=== PATIENT | male | born 1965 | race Caucasian/White ===

== ENCOUNTER 2018-06-23 21:31 | Outpatient (REF) | payer BC, SELFPAY ==
[2018-06-23 22:14] LABS: Anion Gap 6.6 mmol/L (3-11); BUN 21 mg/dL (7-18); CO2 29.4 mmol/L (21.0-32.0); CREATININE 1.24 mg/dL (0.70-1.30); Calcium 9.3 mg/dL (8.5-10.1); Chloride 103 mmol/L (98-107); Cholesterol 180 mg/dL (50-200); Glucose 112 mg/dL (70-100); HDL Cholesterol 40 mg/dL (40-60); LDL CHOLESTEROL 132 mg/dL (<100); Potassium 4.5 mmol/L (3.5-5.1); Sodium 139 mmol/L (136-145); Triglyceride 69 mg/dL (30-150)
== END 2018-06-23 21:51 ==
LOC: NCHCN 21:31
PROVIDERS: PCP Internal Medicine; Visit Provider Internal Medicine
DX: I10 Essential (primary) hypertension (principal); Z13.220 Encounter for screening for lipoid disorders
CPT/HCPCS: 80048; 80061; 83721

== ENCOUNTER 2019-12-09 08:20 | Outpatient (REF) | payer BC, SELFPAY ==
[2019-12-09 21:00] LABS: HCT 41.8 % (40.0-50.0); HGB 13.9 g/dL (13.5-17.5); Mean Corp. HGB Concentration 33.3 g/dL (32.0-36.0); Mean Corpuscular Hemoglobin 30.3 pg (27.0-33.0); Mean Corpuscular Volume 91.1 fL (80-95); Mean Platelet Volume 9.8 fL (8.0-11.0); Platelet Count 325 x1000/uL (130-400); RBC 4.59 m/cumm (4.50-6.00); RBC Distribution Width 12.6 % (11.8-14.1); White Blood Cell Count 5.46 k/cumm (4.4-10.8)
[2019-12-09 21:47] LABS: ALT 33 U/L (16-63); AST 25 U/L (15-37); Alkaline Phosphatase 55 U/L (46-116); Anion Gap 4.6 mmol/L (3-11); BUN 24 mg/dL (7-18); CO2 30.4 mmol/L (21.0-32.0); Calcium 9.4 mg/dL (8.5-10.1); Calculated LDL 124 mg/dL (<100); Chloride 105 mmol/L (98-107); Cholesterol 177 mg/dL (<200); Glucose 103 mg/dL (74-106); HDL Cholesterol 36 mg/dL (40-60); Potassium 4.3 mmol/L (3.5-5.1); Sodium 140 mmol/L (136-145); TSH 1.44 uIU/mL (0.36-3.74); Total Protein 6.9 g/dL (6.4-8.2); Triglyceride 87 mg/dL (<150)
== END 2019-12-09 08:40 ==
LOC: NCHCN 08:20
PROVIDERS: PCP Internal Medicine; Visit Provider Internal Medicine
DX: I10 Essential (primary) hypertension (principal); E66.9 Obesity, unspecified
CPT/HCPCS: 80053; 80061; 85027; 84443

== ENCOUNTER 2020-12-31 16:50 | Outpatient (REF) | payer BC, SELFPAY ==
[2020-12-31 21:40] LABS: Anion Gap 8.3 mmol/L (3-11); BUN 23 mg/dL (7-18); CO2 30.7 mmol/L (21.0-32.0); CREATININE 1.3 mg/dL (0.70-1.30); Calcium 9.4 mg/dL (8.5-10.1); Calculated LDL 102 mg/dL (<100); Chloride 103 mmol/L (98-107); Cholesterol 186 mg/dL (<200); Glucose 104 mg/dL (74-106); HDL Cholesterol 36 mg/dL (40-60); Potassium 3.9 mmol/L (3.5-5.1); Sodium 142 mmol/L (136-145); Triglyceride 242 mg/dL (<150)
[2021-01-02 09:23] LABS: PSA, Screening 1.7 ng/mL (0.0-3.5)
== END 2020-12-31 16:51 | disposition home or self-care (01) ==
LOC: NCHCN 16:50
PROVIDERS: PCP Internal Medicine; Visit Provider Internal Medicine
DX: E78.5 Hyperlipidemia, unspecified (principal); I10 Essential (primary) hypertension; Z12.5 Encounter for screening for malignant neoplasm of prostate
CPT/HCPCS: 80048; 80061; 84153

== ENCOUNTER 2021-06-07 19:45 | Outpatient (CLI) | payer OTHER, SELFPAY ==
--- NOTE | 2021-06-07 13:30 | DI.RAD_ITS ---
Exam(s) XR SHOULDER LT COMPLETE 2+V EXAM: XR SHOULDER LT COMPLETE 2+V CLINICAL HISTORY: S/P FOOSH with locked elbow - shoulder pain x 4 wk, M25.512. TECHNIQUE: 2D digital imaging was performed of the left shoulder. Six images were obtained. AP, Gr ashey, Y-view and axillary views were obtained. COMPARISON: No exams were available for comparison FINDINGS: BONES: No acute fracture is present. No bony destructive lesion is seen. JOINTS: No dislocation present. SOFT TISSUE: Normal. IMPRESSION: Unremarkable radiographs of the left shoulder. DATA REPOSITORY: RADIATION DOSE DELIVERED:
== END 2021-06-07 20:05 ==
PROVIDERS: PCP Internal Medicine; Visit Provider Nurse Practitioner Family
DX: M25.512 Pain in left shoulder (principal)
CPT/HCPCS: 73030

== ENCOUNTER 2021-07-15 00:35 | Outpatient (CLI) | payer OTHER, SELFPAY ==
--- NOTE | 2021-07-15 07:00 | DI.MRI_ITS ---
Exam(s) MR UPPER JOINT LT WO EXAM: MR UPPER JOINT LT WO CLINICAL HISTORY: L SHOULDER PAIN,prox biceps rupture,injury,s46.212a,strain,s49.90xa,m25.512 TECHNIQUE: Multiplanar multisequence MRI of the shoulder was performed. COMPARISON: CR XR SHOULDER LT COMPLETE 2+V from 06/07/2021 FINDINGS: MARROW:There is no evidence of fracture, Hill-Sachs deformity, nor ominous osseous lesions. ROTATOR CUFF MECHANISM: AC JOINT/ACROMIUM: There are moderate degenerative changes in the AC joint. Some impingement noted. Acromion appears downsloping. There is no impingement hook on the undersurface of the acromion.. There is no evidence of os acromiale. Supraspinatus: There is a full-thickness tear of the supraspinatus with retraction musculotendinous j unction to the mid humeral head level. Fluid is seen in the sub acromial bursa region and there is s uperior subluxation of the humeral head within the glenoid fossa. Infraspinatus: There is also full-thickness tear of the infraspinatus with retraction of the musculot endinous junction. Teres Minor: Intact. No evidence of tear nor muscle atrophy. Subscapularis/anterior cuff: Some tendinitis signal is noted. No high-grade tear. No atrophy. BICEPS TENDON: Normally position in the intertubercular groove. No evidence of tear. LABRUM: No significant signal abnormality in the superior labrum posterior to the biceps tendon to stern ggest presence of a SLAP tear. Posterior labrum appears intact. Anterior labrum appears intact. No evidence of paralabral cyst. LABROLIGAMENTOUS/CAPSULAR COMPLEX: There is no evidence of avulsion of the anterior-inferior labrum, capsule, inferior glenohumeral liga ment complex nor disruption of the scapular periosteum to suggest the presence of a Bankart lesion. GLENOHUMERAL JOINT: There is a joint effusion which extends into the medial compartment. Also contin uity of flow through the large rotator cuff tear into the subacromial space. Also some fluid down th e biceps tendon sheath evident. No degenerative subarticular cysts. No evidence of capsular tear. T he inferior glenohumeral ligament is thin but otherwise intact. QUADRILATERAL SPACE: No evidence of mass in the region of the axillary nerve and dorsal circumflex hu meral vessels. Visualized triceps muscle at this level appears unremarkable. IMPRESSION: 1. There are large full-thickness tears of both the supra and infraspinatus with retraction of the mu sculotendinous junctions, this leaving a large bare area. No prominent muscle atrophy. Teres minor is intact. Some tendinitis signal is evident in the anterior cuff-subscapularis 2. No obvious biceps tendon nor labral tears and no evidence of paralabral cyst 3. Glenohumeral joint effusion evident. No loose intra-articular bodies.. DATA REPOSITORY:
== END 2021-07-15 00:55 ==
LOC: DI 00:36
PROVIDERS: PCP Internal Medicine; Visit Provider Student in an Organized Health Care Education/Training Program
DX: M25.412 Effusion, left shoulder; M25.512 Pain in left shoulder; S46.012A Strain of muscle(s) and tendon(s) of the rotator cuff of left shoulder, initial encounter; S49.82XA Other specified injuries of left shoulder and upper arm, initial encounter; X58.XXXA Exposure to other specified factors, initial encounter
CPT/HCPCS: 73221

== ENCOUNTER 2021-08-06 03:53 | Outpatient (CLI) | payer BC, SELFPAY ==
[2021-08-06 12:01] LABS: Source Nasal/Nares
[2021-08-06 16:21] LABS: COVID-19 PCR Negative (Negative)
== END 2021-08-06 03:54 | disposition home or self-care (01) ==
PROVIDERS: PCP Internal Medicine; Visit Provider Student in an Organized Health Care Education/Training Program
DX: Z20.822 Contact with and (suspected) exposure to COVID-19 (principal); Z01.818 Encounter for other preprocedural examination
CPT/HCPCS: 87635

== ENCOUNTER 2021-08-08 10:56 | Day surgery (SDC) | payer OTHER, SELFPAY ==
[2021-08-08] VITALS (8 sets, daily range): BP systolic 120–166; BP diastolic 77–108; PULSE 75–90; RESP 16–24; TEMP 36.2–36.7; O2SAT 94–98; BMI 32.8
--- NOTE | 2021-08-08 10:25 | ANES.PREOP_ITS ---
General Info Date of Service Date Performed: 08/08/21 Height: 5 ft 10 in Weight: 103.873 kg Body Mass Index (BMI): 32.8 Surgical Procedure: Operation Date: 08/08/21 13:10 Proposed Procedure Side Surgeon p Shoulder Rotator Cuff Arthroscopic W/ Extensive Debridement, Biceps Tenodesis, Subacromial Decompression, possible Allograft Superior Capsular Reconstruction Left Osmar Kendrick MD Meds Allergies and Home Medications Allergies Allergy/AdvReac Type Severity Reaction Status Date / Time No Known Allergies Allergy Verified 08/08/21 11:07 Home Medication Medication Instructions Recorded lisinopril 10 mg tablet 10 mg PO DAILY 06/07/21 aspirin 81 mg tablet,delayed 81 mg PO DAILY 07/02/21 release atorvastatin 20 mg tablet 20 mg PO DAILY 07/17/21 aspirin 81 mg tablet,delayed 81 mg PO DAILY 14 Days #14 tab 08/08/21 release naproxen 250 mg tablet 250 - 500 mg PO BID PRN #40 tab 08/08/21 oxycodone 5 mg tablet 5 - 10 mg PO Q4H PRN #18 tab MDD 08/08/21 30 mg Current Visit Medications: Current Medications Generic Name Dose Route Start Last Admin Trade Name Freq PRN Reason Stop Dose Admin Ringer's Solution 1,000 mls @ 100 mls/hr 08/08/21 06:00 IV 09/06/21 23:59 INFUSION ANGELIA Cefazolin Sodium/Dextrose 2 gm in 50 mls @ 100 mls/hr 08/08/21 06:00 Ancef Duplex IVPB 08/08/21 16:00 PREOP ANGELIA IV Miscellaneous Supplies 1 each 08/08/21 06:00 Iv Access IV 09/06/21 23:59 DIRECTED ANGELIA Naproxen 250 - 500 mg 08/08/21 09:42 Naproxen 500 Mg Tab PO BID PRN PRN Oxycodone HCl 5 - 10 mg 08/08/21 09:42 Oxycodone 5 Mg Tab PO Q4H PRN PRN Sodium Chloride 0 ml 08/08/21 06:00 Normal Saline Flush 10 Ml Syr IV 09/06/21 23:59 PRN PRN Sodium Chloride 0 ml 08/08/21 06:00 Normal Saline 10 Ml Vial IJ 09/06/21 23:59 DIRECTED PRN Sterile Water 0 ml 08/08/21 06:00 Water,Injection,Sterile 10 Ml Vial IJ 09/06/21 23:59 DIRECTED PRN [facility] Active Problems Active Problems: Problem Status Onset Code Tendinitis of long head of biceps brachii of left shoulder M75.22 Traumatic tear of left rotator cuff 05/11/21 S46.012A Hypertension I10 Left shoulder pain M25.512 Surgical History Surgical History (Updated 08/08/21 @ 11:07 by Jovanna Art) History of hernia repair Tobacco Smoking/Tobacco Use Status: Never Alcohol Alcohol Intake: current Alcohol intake frequency: 0-2 drinks per day Alcohol type: beer Substance Use Substance use: Never Substance use type: does not use Vital Signs and Lab Results Vital Signs Most Recent Vital Signs in EMR: Temp Pulse Resp BP Pulse Ox 36.5 C 75 18 139/108 H 95 08/08/21 11:13 08/08/21 11:13 08/08/21 11:13 08/08/21 11:13 08/08/21 11:13 Lab Results Blood Type / Crossmatch: No Data to Display Complete Blood Count: No Data to Display Complete Metabolic Panel: No Data to Display Liver Function Panel: No Data to Display Coagulation Panel: No Data to Display Cardiac Panel: No Data to Display Arterial Blood Gas: No Data to Display Venous Blood Gas: No Data to Display Pancreas Panel: No Data to Display Thyroid Panel: No Data to Display Infectious Disease: Coronavirus (COVID-19)(PCR) Negative (Negative) 08/06/21 10:32 08/06/21 Coronavirus 2019 Source Nasal/Nares 08/06/21 10:32 08/06/21 Blood Cultures: No Data to Display Toxicology Panel: No Data to Display Anesthesia Assessment and Plan Anesthesia History Personal History: No History of Anesthesia Complications Family History: No Family History of Anesthesia Complications Exercise Tolerance Exercise Tolerance: Metabolic Equivalents>4 Cardiac & Pulmonary Exam Cardiac Exam: Normal S1/S2 Heart Sounds Pulmonary Exam: Clear Bilateral Breath Sounds Implantable Cardiac Device Does patient have a Pacemaker or an ICD?: No Airway Exam Known Difficult Airway: No Mallampati Class: 3 Mouth Opening: Narrow (< 3cm) Thyromental Distance: Less than 3 cm Facial Hair: Full Breaux Neck Range of Motion: Full ROM Neck Circumference: Normal Teeth Condition: Normal Dentition ASA Classification ASA Score: ASA 2 Emergency Case?: No NPO Status NPO Status: NPO Clears >2 hours, Solids >8 hours Anesthesia Plan Resuscitation Status: Full Code Anesthesia Technique: General Anesthesia Airway Planned: Endotracheal Tube Pain Management: Surgeon and patient request nerve block Monitors Used: Standard Monitors Preoperative Comments:: 56 yo male for left shoulder arthroscopy. Sig PMHx: HTN (lisinopril), never smoker, occ EtOH,
[2021-08-08] MEDS: Lactated Ringers 1,000 ML 100 ML IV (11:57)
--- NOTE | 2021-08-08 12:10 | W.ANESNERVE ---
Nerve Block Single Injection Procedure Date and Time Date Performed: 08/08/21 Procedure Start: 12:01 Location Where Procedure Performed Procedure Location: Day Surgery Unit Reason Performed: Postoperative Analgesia Requesting Provider: Osmar Kendrick Timeout Performed Timeout Performed: Yes Monitoring Used ECG, Blood Pressure and SpO2 Sterility Sterility: Hand Hygiene, Surgical Cap, Surgical Mask, Sterile Gloves and Chlorhexidine Sedation Given During Procedure Sedation Given (Indicate Dose Given): Versed IV Dose:: 2 mg Patient Mental Status Patient Mental Status: Sedate with meaningful communication Nerve Block 1st Nerve Block: Laterality: Left Block Type: Interscalene Needle / Catheter Used: 100mm SonoPlex II Local Anesthetic Bolus (Indicate Dose Given): Lidocaine used for local infiltration of skin, Injected in 3-5ml increments after negative blood aspiration, Bupivacaine 0.5% Dose:: 14 mL and Exparel Dose:: 10 mL Additives (Indicate Dose Given): None Ultrasound: Sterile probe cover and gel used Ultrasound Image Saved?: Yes Nerve Stimulator: Not Used Paresthesia: None Procedure Tolerated: No Complications Procedure Outcome: Successful Performed By: Rich Rooney
[2021-08-08] MEDS: ceFAZolin 2 GM/50 ML BAG IVPB (12:34)
[2021-08-08] MEDS: EPINEPHrine 30 MG/30 ML VIAL (14:56)
--- NOTE | 2021-08-08 15:16 | PDOC.DSDIS_ITS ---
Discharge Plan Disposition Patient Disposition: HOME Condition: Stable Discharge Details Reason For Visit: Left shoulder surgery Attending Provider: Osmar Kendrick Primary Care Provider: Ana Lilia Ortega Home Meds and New Rx's Prescriptions: New aspirin 81 mg tablet,delayed release (DR/EC) 81 mg PO DAILY 14 Days Qty: 14 0RF naproxen 250 mg tablet 250 - 500 mg PO BID PRNQty: 40 0RF Rx Instructions: take with a meal oxycodone 5 mg tablet 5 - 10 mg PO Q4H MDD 30 mg PRN (Reason: moderate to severe pain) Qty: 18 0RF Continued lisinopril 10 mg tablet 10 mg PO DAILY 0RF aspirin 81 mg tablet,delayed release (DR/EC) 81 mg PO DAILY 0RF atorvastatin 20 mg tablet 20 mg PO DAILY 0RF Discharge Instructions Additional Instructions: Surgery: Left shoulder arthroscopy with massive rotator cuff repair, biceps tenodesis, extensive debridement, and subacromial decompression. Activity: For 6 weeks, you should keep your arm at your side in a neutral position at all times except for physical therapy. Do not try to lift or raise your arm using your own muscles. You should use the sling whenever you are out of the house. You may have to adjust the abduction pillow or remove it for comfort. At home it is best to remove the sling and rest the arm on a pillow at your side or support the operative side with your other hand. Take it easy! A physical therapy prescription will be sent electronically to begin in about 3 weeks. CONSERVATIVE protocol. Gentle, passive?only range of motion for 6 weeks followed by active-assisted and then active range of motion after 8 weeks. No strengthening for 3 months. Prescriptions: Aspirin 81 mg take 1 daily to prevent a blood clot for 2 weeks Naproxen 250 mg take 1-2 every 12 hours with a meal as needed for moderate pain Oxycodone 5 mg take 1-2 every 4-6 hours as needed for severe pain You may use [id number] Tylenol (acetaminophen) as needed for mild pain. These pain medications may be taken all at once or in different combinations as needed. Also, recommend Colace (docusate) as a stool softener as surgery and pain medicine cause constipation. Dressings: Remove shoulder bandage after 3 days. Leave the sticky Steri-Strips in place until they fall off or remove them after you shower. Cover the incisions with Band-Aids or leave them open to air. You may shower after 5 days. Follow-up: 10-[address] Kendrick You may take off the leg compression stockings this evening at home. You may also leave them on a few days longer if you have a history of leg swelling or edema. Let us know right away if you develop any redness, drainage, fevers, chest pain, or trouble breathing. Do not drink alcohol or drive for at least 24 hours after anesthesia. Please call the office during business hours with any questions or concerns. Referrals: Osmar Kendrick MD [ [facility] STAFF PHYSICIAN] - Discharge Orders Discharge Orders: Discharge Order (Routine); Ordered 08/08/21 Ordered By: Osmar Kendrick
--- NOTE | 2021-08-08 15:32 | W.PM.OP ---
Operative Note Operative Note DATE OF PROCEDURE: 08/08/21 PRE-OP DIAGNOSIS: Left: 1. Massive SS & IS rotator cuff tear 2. Partial intra-articular long head biceps tear 4. SLAP tear 5. Bursitis POST-OP DIAGNOSIS: same PROCEDURE: Left: 1. Massive rotator cuff repair, CPT# 60948. This involved repair of the supraspinatus and infraspinatus using anchors and sutures to reattach the rotator cuff back to the footprint of the greater tuberosity. 2. Arthroscopic biceps tenodesis, CPT# 62202. This involved arthroscopically suturing and reattaching the long head of the biceps tendon to the proximal humerus at the superior margin of the bicipital groove with a screw at the correct tension. 3. Extensive debridement, CPT# 71672. This involved using arthroscopic hand instruments, power instruments, and radiofrequency instruments to release the long head of the biceps tendon and debride areas of labral tearing, synovitis, and chondromalacia about the humeral head within the glenohumeral joint anteriorly, superiorly and posteriorly. 4. Subacromial decompression, CPT# 01993. This involved using arthroscopic power instruments and a radiofrequency wand to complete a bursectomy.. The shipping and receiving assistant was medically required in order to help assist in techniques above, which require positioning the arm, holding the arthroscope, and manipulating multiple instruments and sutures at the same time. This cannot be done without the help of an experienced shipping and receiving assistant. SURGEON: Osmar Kendrick CLINICAL MOLECULAR GENETICIST: Tru Encinas ANESTHESIA TYPE: General LMA/ETT and Primary Nerve Block Refer to Anesthesia Record ESTIMATED BLOOD LOSS: 10 PATHOLOGY: none sent COMPLICATIONS: None Patient was transported to: PACU Patient's condition: stable Implants: Arthrex: 4.75mm SwiveLocks x 6 Indications: The patient was diagnosed with the above conditions and appropriately indicated for surgical intervention. Please see complete medical record for details. Findings: Exam under anesthesia: Full range of motion, no instability Glenohumeral joint: Significant anterior synovitis. Intact subscapularis. Long head biceps tendon intra-articular segment with about 30% partial split tearing and fraying. Degenerative type I SLAP tear. Moderate posterior synovitis. Somewhat chronic appearing chondromalacia about the anterior, superior, and posterior humeral head greater tuberosity. Subacromial space: Significant bursitis. Full-thickness, retracted, and delaminated supraspinatus and infraspinatus rotator cuff tears with moderate tendon remnant on the lateral greater tuberosity. Procedure Description: In the operating room, general anesthesia was induced. Bilateral shoulders were examined. The patient was positioned in the beachchair position. All bony prominences were well-padded. Preoperative antibiotics were administered. The shoulder was prepped and draped in the usual sterile fashion. The correct patient, procedure, and side of the procedure were all verified prior to incision. Starting through the posterior portal a standard complete diagnostic arthroscopy was performed of the glenohumeral joint including inspection of the long head of the biceps, anterior and superior labrum, subscapularis tendon, supraspinatus and infraspinatus tendons, and axillary recess. The glenoid and humeral head cartilage as well as the posterior labrum were inspected from an anterior viewing portal. Significant findings and interventions noted above. A rigid cannula was inserted anteriorly. The usual anterior superior lateral, lateral, and posterior superior lateral portals were established. The long head biceps tendon was inspected and because of the significant split tearing and SLAP tear decision was made to proceed with biceps tenodesis. Using a Loop N Tack method with a SutureTape FiberLink cinched around and through the tendon. The biceps was tenotomized from the labrum and withdrawn out the anterior portal for later fixation with an anterior supraspinatus suture anchor to secure it about the superior margin of the bicipital groove. Attention was turned to the massive rotator cuff tear. A combination of power instruments and a radiofrequency ablator were used to debride bursitis anteriorly, posteriorly, and laterally. The coracoacromial ligament was preserved. Released.] The bursectomy was completed viewing laterally and working from posteriorly and the rotator cuff was thoroughly inspected showing significant posterior extension involving the entire infraspinatus. There was delamination between the superior capsule and rotator cable that had limited medial to lateral excursion and the thinner superior layers of the supraspinatus and infraspinatus. The cuff was mobilized on all sides and debrided of frayed thin edges and nonstructural tissue. Arm position was optimized and various graspers were used to confirm mild excursion anteriorly and posteriorly with the ability to achieve full tendon approximation over the medial aspect of the greater tuberosity without undue tension. Decision was made to proceed with repair over reconstruction. Given the significant posterior injury, the infraspinatus was repaired first with an inverted horizontal FiberTape mattress paced centrally through the tendon and a ripstop FiberLink placed in cinch mode securing all layers of the tear together. The sutures were secured to a posterior centrally placed SwiveLock anchor with appropriate tension. The more superior tissue layers were now more reduced to the posterior greater tuberosity and additionally fixated with the repair sutures from the anchor, which were passed up through all layers of this posterior infraspinatus and secured using SMC arthroscopic knots down over the anchor augmenting the posterior repair. Most anteriorly in a similar fashion an inverted horizontal FiberTape mattress placed through the anterior supraspinatus. These repair sutures as well as the repair suture tape for the biceps were secured to a anterior central anchor completing the biceps tenodesis. The central supraspinatus and anterior infraspinatus were inspected again. With the repair anteriorly and posteriorly there is now a moderate amount of tissue covering about 50% of the tuberosity. Given young age and high activity level decision to proceed with double row repair in the central aspect of the tear. An anterior and posterior medial row SwiveLock anchor was placed preloaded with fiber tapes, which were shuttled through the appropriate medial level anterior and posterior rotator cuff tissue. A single FiberTape from the anterior and posterior anchors was then brought out laterally. Provisional reduction confirmed in arm position optimized to a far lateral anchor. There was good compression and coverage of the limited again maybe 50% tissue available over the medial aspect of the greater tuberosity. The anterior followed by posterior lateral anchors were then placed completing the rotator cuff repair. Repair was inspected and demonstrated good bone tendon contact and coverage. It was stable through range of motion. The shoulder was drained of arthroscopic fluid. All portal sites were copiously irrigated. These incisions were closed using 3-0 Monocryl in a buried fashion and then covered with Mastisol, Steri-Strips, Xeroform, dry gauze, and ABDs. The dressings were covered and secured with Medipore tape. The operative extremity was placed into a sling for immobilization. The patient awoke from anesthesia without complication and was transferred to the recovery room in a stable condition.
--- NOTE | 2021-08-08 16:23 | W.ANESPOSTOP ---
Postoperative Evaluation Date, Time and Location Date Performed: 08/08/21 Time Performed: 16:23 Patient Location: Day Surgery Unit Vital Signs Most Recent Imported Vital Signs: Most Recent Vital Signs Temp Pulse Resp BP Pulse Ox 36.3 C L 89 16 132/77 94 08/08/21 16:09 08/08/21 16:09 08/08/21 16:09 08/08/21 16:09 08/08/21 16:09 Pain Score Most Recent Pain Score: Most Recent Pain Score Pain Level 0 08/08/21 16:09 Assessment Mental Status: Awake (Alert & Oriented to Patient Baseline) Airway and Respiratory Function: Patent airway with normal (patient baseline) respiratory exam Cardiovascular Function: Hemodynamically Stable Hydration Status: Adequately Hydrated Nausea & Vomiting: No Nausea or Vomiting Pain: Pt. Denies Any Pain Peripheral Nerve Block: Regional nerve block not resolved at time of post operative discharge
== END 2021-08-08 17:20 | disposition home or self-care (01) ==
LOC: SUR 10:57
PROVIDERS: PCP Internal Medicine; Visit Provider Student in an Organized Health Care Education/Training Program
PROC: (CPT 29827; principal; 2021-08-08 13:00)
DX: M75.102 Unspecified rotator cuff tear or rupture of left shoulder, not specified as traumatic (principal); S46.112A Strain of muscle, fascia and tendon of long head of biceps, left arm, initial encounter; S43.432A Superior glenoid labrum lesion of left shoulder, initial encounter; X58.XXXA Exposure to other specified factors, initial encounter; M75.52 Bursitis of left shoulder
CPT/HCPCS: 29827; 29826; 29828; 29823; 76942; J0690; J1100; J1885; J2001; J2250; J2370; J2405; J2704

== ENCOUNTER 2022-01-01 15:17 | Outpatient (REF) | payer BC, SELFPAY ==
[2022-01-01 16:17] LABS: Anion Gap 6.3 mmol/L (3-11); BUN 22 mg/dL (7-18); CO2 27.7 mmol/L (21.0-32.0); CREATININE 1.1 mg/dL (0.70-1.30); Calcium 9.1 mg/dL (8.5-10.1); Calculated LDL 96 mg/dL (<100); Chloride 106 mmol/L (98-107); Cholesterol 149 mg/dL (<200); Glucose 100 mg/dL (74-106); HDL Cholesterol 42 mg/dL (40-60); Potassium 4.5 mmol/L (3.5-5.1); Sodium 140 mmol/L (136-145); Triglyceride 59 mg/dL (<150)
== END 2022-01-01 15:18 | disposition home or self-care (01) ==
LOC: NCHCN 15:17
PROVIDERS: PCP Internal Medicine; Visit Provider Internal Medicine
DX: E78.5 Hyperlipidemia, unspecified (principal); I10 Essential (primary) hypertension
CPT/HCPCS: 80048; 80061

== ENCOUNTER 2023-01-28 15:47 | Outpatient (REF) | payer OTHER, SELFPAY ==
[2023-01-28 18:04] LABS: Anion Gap 7.5 mmol/L (3-11); BUN 19 mg/dL (7-18); CO2 27.5 mmol/L (21.0-32.0); CREATININE 1.2 mg/dL (0.70-1.30); Calcium 9.5 mg/dL (8.5-10.1); Calculated LDL 67 mg/dL (<100); Chloride 104 mmol/L (98-107); Cholesterol 122 mg/dL (<200); Glucose 113 mg/dL (74-106); HDL Cholesterol 44 mg/dL (40-60); Potassium 4.3 mmol/L (3.5-5.1); Sodium 139 mmol/L (136-145); Triglyceride 55 mg/dL (<150)
== END 2023-01-28 15:48 | disposition home or self-care (01) ==
LOC: NCHCN 15:47
PROVIDERS: PCP Internal Medicine; Visit Provider Internal Medicine
DX: Z00.00 Encounter for general adult medical examination without abnormal findings (principal); I10 Essential (primary) hypertension; E78.5 Hyperlipidemia, unspecified
CPT/HCPCS: 80048; 80061

== ENCOUNTER 2024-02-08 13:30 | Outpatient (REF) | payer OTHER, SELFPAY ==
[2024-02-08 14:51] LABS: Anion Gap 8.2 mmol/L (3-11); BUN 17 mg/dL (7-18); CO2 27.8 mmol/L (21.0-32.0); CREATININE 1.2 mg/dL (0.70-1.30); Calcium 9.4 mg/dL (8.5-10.1); Chloride 104 mmol/L (98-107); Estimated GFR 69.66 (mL/min/1.73m2); Glucose 107 mg/dL (74-106); Sodium 140 mmol/L (136-145)
[2024-02-08 15:06] LABS: Hemoglobin A1C 6.1 % (<5.7)
[2024-02-08 23:15] LABS: PSA, Screening 2.1 ng/mL (<=3.5)
== END 2024-02-08 13:31 | disposition home or self-care (01) ==
LOC: NCHCN 13:30
PROVIDERS: PCP Internal Medicine; Visit Provider Internal Medicine
DX: R73.03 Prediabetes (principal); Z12.5 Encounter for screening for malignant neoplasm of prostate; I10 Essential (primary) hypertension
CPT/HCPCS: 80048; 84153; 83036

== ENCOUNTER 2024-06-24 13:01 | Outpatient (REF) | payer OTHER, SELFPAY ==
--- NOTE | 2024-06-24 10:00 | SKI_PTH ---
PATIENT: Lamont Andersen LOC: [facility] U#:[id number] AGE/SX: 59/M ROOM: RE06/24/[address]: Ana Lilia Ortega : 1965 BED: DIS: 06/24/2024 SPEC #: [id number] RECD: 06/24/24 17:47 STATUS: LATRICIA REMary #: [id number] HERBIE: 06/24/24 10:[address]: Ana Lilia Ortega DEPT: Surgical Specimen RECD BY: Katarzyna Vivar Tissues: 1 - SKIN BIOPSY(SHAVE/PUNCH) Procedures: SKIN LEVEL 4 Comments: [id number]
== END 2024-06-24 13:02 | disposition home or self-care (01) ==
LOC: NCHCN 13:01
PROVIDERS: PCP Internal Medicine; Visit Provider Internal Medicine
DX: B07.8 Other viral warts (principal)
CPT/HCPCS: 88305